=== PATIENT | female | born 1990 ===

== ENCOUNTER 2021-06-08 08:15 | Inpatient (IN) | payer OTHER ==
[~2021-06-08] VITALS: Ht 157.5 cm; Wt 93.6 kg
[2021-06-08] VITALS (29 sets, daily range): BP systolic 102–149; BP diastolic 56–94; PULSE 67–98; TEMP 97.2–98.8
--- NOTE | 2021-06-08 08:10 | NUR ---
0810- 40.0, G1L0 arrives on unit with c/o regular contractions that started at 0400. Denies any LOF or VB, + for movement. To LDR4 with spouse. Oriented to room and plan of care. Changes into clean gown. 0812- EFM explained and placed. VS obtained. Assessment completed. 0816- SVE per Jose Roy RN 2, SAILAJA. 0820- Dr. Bailey at nurses desk and updated on pt. See physician notification. 0840- Consent forms explained and signed. IV to left wrist by Jose Roy RN. Routine labs obtained via IV site. IV flushed and to INT. 0854- Dr. Bailey to pt bedside. Reviews plan of care with pt and spouse. AROM by Dr. Bailey for small amount of clear fluid. SVE per provider 1. Frances care provided, and patient wedge right. 0920- EFM off and pt ambulatory in halls.
[2021-06-08] MEDS ORDERED: PRENATAL TABLET PO (08:28)
[2021-06-08 09:01] LABS: BASO % 0.2 % (0.0-2.0); EOS # 0.1 K/mm3 (0.0-0.7); EOS % 0.6 % (0.0-4.0); GRAN # 9.4 K/mm3 (1.4-6.5); GRAN % 77.7 % (42.2-75.2); HEMATOCRIT 38.9 % (37.0-47.0); HEMOGLOBIN 13.1 g/dl (12.5-16.0); LYMPH # 1.6 K/mm3 (1.2-3.4); LYMPH % 12.8 % (20.0-51.0); MEAN CELL VOLUME 84 fl (80.0-100.0); MEAN CORPUSCULAR HEMOGLOBIN 28 pg (27-31); MEAN CORPUSCULAR HGB CONC 34 g/dl (33.0-37.0); MEAN PLATELET VOLUME 10.5 fl (7.4-10.4); MONO % 8.3 % (1.7-9.3); PLATELET COUNT 221 K/mm3 (130-400); RED BLOOD COUNT 4.61 M/mm3 (4.10-5.30); REDCELL DISTRIBUTION WIDTH-CV 14.6 % (11.5-14.5)
--- NOTE | 2021-06-08 10:00 | NUR ---
1000- Patient requesting epidural. Camila Llanos SAMPLE PROCESSOR notified. LR bolus started. 1020- Report to Scar Ibarra RN who assumes care of pt.
--- NOTE | 2021-06-08 11:32 | NUR ---
THIS RN AT BEDSIDE. ADJUSTING FHR MONITOR. LR INFUSING. PATIENT REPOSTIIONED LEFT LATERAL. WILL CONTINUE TO MONITOR.
--- NOTE | 2021-06-08 14:20 | NUR ---
1317 SVE by this RN C/100/+1. [place] catheter removed. 70cc noted. 1325 Pt begins pushing with contractions. This RN and significant other at bedside. 1345 Pitocin started at [address] Bailey Phone order. 1350 Dr. Bailey at bedside. Assessing FHR monitor and patient's pushing. 1400 Pitocin at [address] Bailey in room assessing FHR monitor and discussing vacuum extraction with patient. Vacuum applied to infant's head by Dr Bailey while patients pushing with contractions. 3 pulls and a pop off. Vacuum applied to infants head with next contration 2 pulls and removed. Infant . 1415 Spontaneous vaginal delivery of viable female . Infant bulb suctioned and stimulated. Cord clamped by Dr. Bailey and cut by FOB. Infant placed on mother's chest. Kaity Brice takes over care of infant. Infant brought to warmer and assessed. 1418 Spontaneous delivery of placenta. Pitocin bolus started per protocol. 2nd degree laceration noted. Repaired by Dr Bailey. Fundal massage done. Midline/firm. Scant amt of bleeding noted. Will continue to monitor. Frances care done. Clean pad under pt. Safety precautions and plan of care discussed. Pt verbalizes understanding.
[2021-06-08] MEDS ORDERED: MOTRIN 800800 MG/TAB PO (16:28)
--- NOTE | 2021-06-08 17:00 | NUR ---
pt assisted to bedside. denies dizziness or lightheadednes. ambulates to bathroom. pt able to urinate. mira care done. clean gown on. pt in wheelchair to room.
[2021-06-09 07:05] VITALS: BP 135/80; PULSE 71; TEMP 98
--- NOTE | 2021-06-09 09:55 | NUR ---
Initial visit; Family thanked [employer] for offering congratulations and God's blessings for the of their daughter. [employer] thanked family for choosing [facility].
== END 2021-06-09 16:25 | disposition home or self-care (01) | DRG 807 ==
LOC: LDRO 08:15 → LDR 08:15 → LDRO 10:10 → OB 10:11 → LDR 10:11 → OB 18:09
PROVIDERS: ADMIT Obstetrics & Gynecology
PROC: 10D07Z6 Extraction of Products of Conception, Vacuum, Via Natural or Artificial Opening (ICD-10-PCS; principal; 2021-06-08)
PROC: 0KQM0ZZ Repair Perineum Muscle, Open Approach (ICD-10-PCS; 2021-06-08)
PROC: 10907ZC Drainage of Amniotic Fluid, Therapeutic from Products of Conception, Via Natural or Artificial Opening (ICD-10-PCS; 2021-06-08)
DX: O99.214 Obesity complicating childbirth (principal); Z37.0 Single live birth; O69.81X0 Labor and delivery complicated by cord around neck, without compression, not applicable or unspecified; O76 Abnormality in fetal heart rate and rhythm complicating labor and delivery; O70.1 Second degree perineal laceration during delivery; Z3A.40 40 weeks gestation of pregnancy; Z23 Encounter for immunization
CPT/HCPCS: J2590; J7120